=== PATIENT | male | born 1970 | race Caucasian/White ===

== ENCOUNTER 2017-05-18 15:27 | Emergency (ER) | payer MEDICAID ==
[2017-05-18] MEDS: CEFTRIAXONE 1 GM INJ IM (16:50)
[2017-05-18] MEDS: DIPHTH/TET/ACEL PERTUSS (ADULT) 0.5 ML VIAL IM* (16:50)
[2017-05-18] MEDS: OXYCODONE/ACETAMINOPHEN (5/325) TAB PO (16:50)
[2017-05-18] MEDS: LIDOCAINE 1% (MPF) 30 ML INJ SC (16:51)
[2017-05-18] MEDS ORDERED: LIDOCAINE 1% (MDV) 20 ML INJ SC (17:00)
== END 2017-05-18 19:11 | disposition home or self-care (01) ==
LOC: E/R 15:27
DX: S62.631B Displaced fracture of distal phalanx of left index finger, initial encounter for open fracture (principal); S62.623B Displaced fracture of middle phalanx of left middle finger, initial encounter for open fracture; R40.2142 Coma scale, eyes open, spontaneous, at arrival to emergency department; R40.2252 Coma scale, best verbal response, oriented, at arrival to emergency department; R40.2362 Coma scale, best motor response, obeys commands, at arrival to emergency department; W27.0XXA Contact with workbench tool, initial encounter; Y92.9 Unspecified place or not applicable; Z23 Encounter for immunization
CPT/HCPCS: 12002; 73130-LT; 90471; 90715; 96372; 99284-25

== ENCOUNTER 2017-05-21 10:37 | Emergency (ER) | payer MEDICAID | END 2017-05-21 12:42 | disposition home or self-care (01) | LOC: FTE 10:37 | DX: Z48.01 Encounter for change or removal of surgical wound dressing (principal) | CPT/HCPCS: 99281; Z7502 ==

== ENCOUNTER 2017-05-27 05:55 | Emergency (ER) | payer MEDICAID | END 2017-05-27 07:25 | disposition home or self-care (01) | LOC: FTE 05:55 | DX: Z48.01 Encounter for change or removal of surgical wound dressing (principal) | CPT/HCPCS: 99283; Z7502 ==

== ENCOUNTER 2017-06-09 08:37 | Emergency (ER) | payer MEDICAID | END 2017-06-09 09:40 | disposition home or self-care (01) | LOC: FTE 08:37 | DX: R20.0 Anesthesia of skin (principal) | CPT/HCPCS: 99282; Z7502 ==